=== PATIENT | male | born 1970 | race Caucasian/White ===

== ENCOUNTER 2016-07-16 14:48 | Emergency (ER) | payer OTHER ==
[~2016-07-16] VITALS: Ht 172.7 cm; Wt 124.7 kg
[~2016-07-16 14:48] MED LIST: AVAPRO300 MG PO; AZULFIDINE500 MG PO; CRESTOR10 MG PO; LIPITOR PO; MITIGARE0.6 MG PO; PERCOCET 5/31 TABLET PO; PERCOCET 7.51 TABLET PO; VOLTAREN50 MG PO
[2016-07-16 16:08] LABS: HEMATOCRIT 46.2 % (38.0-50.0); MCH 27.5 PG (29.0-34.0); MCHC 31.2 G/DL (30.0-36.0); MCV 88.2 FL (86-99); MEAN PLAT.VOLUME 9.2 uM^3 (9.0-12.4); PLATELET COUNT 182 K/uL (156-360); RBC DIS.WIDTH-CV 14.6 % (11.8-14.6); RBC DIS.WIDTH-SD 46.9 % (39-53); RED BLOOD COUNT 5.24 M/uL (4.00-5.50); WHITE BLOOD COUNT 7.8 K/uL (4.1-10.2)
[2016-07-16 16:21] LABS: CHLORIDE 111 mEq/L (99-109); SODIUM 144 mEq/L (136-147)
[2016-07-16 16:23] LABS: GLUCOSE 124 mg/dL (70-99)
[2016-07-16 16:24] LABS: ANION GAP 9 MEQ/L (2-14)
[2016-07-16 16:27] LABS: GFR ESTIMATE (CALCULATED) > 59 mL/min/
[2016-07-16 16:28] LABS: UREA NITROGEN (BUN) 22 mg/dL (9-23)
[2016-07-16 16:33] LABS: TROP-I INTERPRETATION NEGATIVE; TROPONIN-I < 0.01 ng/mL (0.0-0.30)
[2016-07-16 19:15] LABS: TROP-I INTERPRETATION NEGATIVE; TROPONIN-I < 0.01 ng/mL (0.0-0.30)
[2016-07-16 21:13] VITALS: BP 125/81
== END 2016-07-16 21:16 | disposition home or self-care (01) ==
LOC: EME 14:48
PROVIDERS: Emergency Medicine
DX: R55 Syncope and collapse (principal)
CPT/HCPCS: 70450; 71010; 80048; 84484; 85027; 93005; 99281; 99284